=== PATIENT | male | born 1965 | race African-American/Black ===

== ENCOUNTER 2018-01-28 23:46 | Emergency (ER) | payer OTHER ==
[~2018-01-28] VITALS: Ht 175.3 cm; Wt 89.8 kg
[2018-01-28] MEDS ORDERED: HYDROCHLOROTHIA25 M2 PO (23:50)
[2018-01-28] MEDS ORDERED: PRINIVIL20 MG PO (23:50)
[2018-01-29 00:10] LABS: ABSOLUTE EOSINOPHILS 0.2 thou/uL (0.0-0.7); ABSOLUTE MONOCYTES 0.7 thou/uL (0.0-1.2); ABSOLUTE NEUTROPHILS 3.5 thou/uL (1.6-8.1); BASOPHILS 0.3 %; EOSINOPHILS 2.5 %; HEMATOCRIT 39.5 % (42.0-52.0); HEMOGLOBIN 13.1 gm/dL (14.0-18.0); LYMPHOCYTES 40.4 %; MCH 24.7 pg (26.0-34.0); MCHC 33.2 g/dL (28.0-37.0); MCV 74.3 fL (80.0-100.0); MONOCYTES 9.2 %; NUCLEATED RBCS 0 /100WBC; PLATELET COUNT* 171 thou/uL (150-400); POLYS 47.6 %; RBC 5.32 mil/uL (4.50-6.00); RDW-CV 16.1 % (10.5-14.5); WBC 7.5 thou/uL (4.0-11.0)
[2018-01-29 00:20] LABS: CHLORIDE 107 mmol/L (98-107); POTASSIUM 3.5 mmol/L (3.5-5.1); SODIUM 141 mmol/L (136-145)
[2018-01-29 00:46] LABS: ANION GAP 3 mmol/L (7-16); CO2 31 mmol/L (21-32)
[2018-01-29 00:47] LABS: CREATININE 1.1 mg/dL (0.6-1.3); GLUCOSE 118 mg/dL (70-99); SGOT 22 U/L (15-37)
[2018-01-29 00:48] LABS: ALKALINE PHOSPHATASE 73 U/L (46-116); CALCIUM 8.6 mg/dL (8.5-10.1); SGPT 31 U/L (30-65); TOTAL BILIRUBIN 0.2 mg/dL (<0.1-1.0)
[2018-01-29 00:49] LABS: ALBUMIN 3.8 g/dL (3.4-5.0); TOTAL PROTEIN 6.6 g/dL (6.4-8.2); TROPONIN-I LEVEL <0.06 ng/mL (<0.06)
[2018-01-29 00:52] LABS: BUN 16 mg/dL (7-18)
[2018-01-29 01:35] LABS: URINE BILIRUBIN NEGATIVE (Negative); URINE BLOOD NEGATIVE (Negative); URINE CLARITY CLEAR; URINE COLOR YELLOW; URINE GLUCOSE-RANDOM NEGATIVE (Negative); URINE KETONES NEGATIVE (Negative); URINE LEUKOCYTES-REFLEX NEGATIVE (Negative); URINE NITRITE-REFLEX NEGATIVE (Negative); URINE PROTEIN NEGATIVE (Negative); URINE SPECIFIC GRAVITY 1.025 (1.005-1.030); URINE UROBILINOGEN 0.2 E.U./dl (0.2-1.0)
[2018-01-29 01:44] LABS: AMP/METHAMP Negative (Negative); BARBITURATES Negative (Negative); BENZODIAZEPINES Negative (Negative); COCAINE Negative (Negative); METHADONE Negative (Negative); OPIATES Negative (Negative); PCP POSITIVE (Negative); THC Negative (Negative)
[2018-01-29] MEDS ORDERED: HYDROCHLOROTHIA25 M2 PO (01:54)
[2018-01-29] MEDS ORDERED: PRINIVIL20 MG PO (01:54)
[2018-01-29 02:03] VITALS: BP 165/85
--- NOTE | 2018-01-29 10:47 | EKG ---
[place] [address] ELECTROCARDIOGRAM REPORT Name: RAHUL ALLEN Room: [facility]#: [id number] Admission: 01/28/18 Attend Phys: Discharge: 01/29/18 Date of : 69 Report #: [id number] THIS REPORT FOR: //name// 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1965 Requested By: Melvi Sood Order Number: [id number] MD: Dav Valenzuela Measurements Intervals [place] Rate: 97 P: 32 CO: 140 QRS: -43 QRSD: 99 T: 5 QT: 351 QTc: 446 Interpretive Statements Sinus rhythm septal q waves Left ventricular hypertrophy ST elev, probable normal early repol pattern No previous ECG available for comparison Electronically Signed On 01-29-2018 10:47:34 CDT by Dav Valenzuela [email or web address] <ELECTRONICALLY SIGNED> By: Dav Valenzuela MD, [facility] 01/29/18 1047 [id number] Dav Valenzuela MD, FACC /EPI
== END 2018-01-29 02:04 | disposition home or self-care (01) ==
LOC: M.ERS 23:46
PROVIDERS: Emergency Medicine
DX: E86.0 Dehydration (principal); R41.82 Altered mental status, unspecified; I10 Essential (primary) hypertension

== ENCOUNTER 2018-08-02 20:40 | Emergency (ER) | payer OTHER ==
[~2018-08-02] VITALS: Ht 175.3 cm; Wt 86.2 kg
[~2018-08-02 20:40] MED LIST: HYDROCHLOROTHIA25 M2 PO; PRINIVIL20 MG PO
[2018-08-02] MEDS ORDERED: PRINIVIL20 MG PO (20:51)
[2018-08-02] MEDS ORDERED: MOBIC7.5 MG PO (21:37)
[2018-08-02 21:53] VITALS: BP 151/93
== END 2018-08-02 21:54 | disposition home or self-care (01) ==
LOC: M.ERS 20:40
DX: S93.402A Sprain of unspecified ligament of left ankle, initial encounter (principal); I10 Essential (primary) hypertension; W00.0XXA Fall on same level due to ice and snow, initial encounter; Y93.89 Activity, other specified; Y92.89 Other specified places as the place of occurrence of the external cause; Y99.8 Other external cause status